=== PATIENT | male | born 1960 | race Two or more races ===

== ENCOUNTER → 2017-02-08 | Outpatient (CLI) | payer OTHER ==
--- NOTE | 2017-02-08 11:32 | RAD ---
HISTORY: Injury left 5th digit Study: Four views left hand Comparison: None Findings: There is an oblique fracture through the distal phalanx of the 5th digit with mild dorsal displaceme nt of the distal fragment. There is associated soft tissue swelling noted. There are degenerative ch anges of the interphalangeal joints. There are extensive postsurgical changes of the distal radius a nd radiocarpal joint related to old trauma. Remaining osseous structures appear intact. IMPRESSION: 1. Oblique fracture through the 5th distal phalanx with mild dorsal displacement. Reported By:
== END | disposition home or self-care (01) ==
LOC: RAD 10:14
PROVIDERS: ATTEND Obstetrics & Gynecology Obstetrics
DX: S69.82XA Other specified injuries of left wrist, hand and finger(s), initial encounter (principal); S62.637A Displaced fracture of distal phalanx of left little finger, initial encounter for closed fracture; X58.XXXA Exposure to other specified factors, initial encounter
CPT/HCPCS: 73130